=== PATIENT | male | born 1980 | race African-American/Black ===

== ENCOUNTER 2024-01-14 20:22 | Emergency (ER) | payer MEDICAID ==
[~2024-01-14] VITALS: Ht 188 cm; Wt 111.0 kg
[~2024-01-14 20:22] MED LIST: LEVO-65 PO; TAMS-11 PO
[2024-01-14 20:26] VITALS: TEMP 98; O2SAT 97
[2024-01-15] MEDS: METHOCARBAMOL 500MG TABLET PO ONE (00:46)
[2024-01-15] MEDS: HYDROCODONE/ACETAMINOPHEN 5/325MG TABLET PO ONE (00:46)
[2024-01-15] MEDS: KETOROLAC 30MG/ML VIAL IM ONE (00:46)
[2024-01-15] MEDS: LIDOCAINE 5% PATCH TOP SCH (00:48)
[2024-01-15] MEDS ORDERED: LIDO700A15 TP (01:02)
[2024-01-15] MEDS ORDERED: METH-653 MT (01:02)
[2024-01-15] MEDS ORDERED: IBUP-2028 MT (01:02)
[2024-01-15 01:40] VITALS: BP 120/75; PULSE 64; RESP 18; O2SAT 99
== END 2024-01-15 01:41 | disposition home or self-care (01) ==
LOC: ER 20:22
DX: M54.31 Sciatica, right side (principal)
CPT/HCPCS: 99284; 96372; J1885

== ENCOUNTER 2024-02-05 07:20 | Emergency (ER) | payer MEDICAID ==
[~2024-02-05] VITALS: Ht 193 cm; Wt 103.0 kg
[~2024-02-05 07:20] MED LIST changes: +IBUP-2028 MT; +LIDO700A15 TP; +METH-653 MT
[2024-02-05 07:26] VITALS: O2SAT 98
[2024-02-05] MEDS ORDERED: IBUP-2030 PO (08:43)
[2024-02-05] MEDS ORDERED: DOCU-422 PO (08:43)
[2024-02-05 08:44] VITALS: BP 137/61; PULSE 73; RESP 16; TEMP 36.50292; O2SAT 98
[2024-02-05] MEDS: MORPHINE SULFATE 4 MG/ML INJ (FOR IV/IM USE) IV NR (09:27)
[2024-02-05] MEDS: KETOROLAC 30MG/ML VIAL IV NR (09:27)
[2024-02-05] MEDS ORDERED: LACTULOSE 20G/30ML UDC PO SCH (14:00)
== END 2024-02-05 11:08 | disposition home or self-care (01) ==
LOC: ER 07:20
DX: M54.31 Sciatica, right side (principal); Z79.899 Other long term (current) drug therapy
CPT/HCPCS: 72100; 96374; 96375; 99284; J1885; J2270; Z7610

== ENCOUNTER 2024-03-13 11:43 | Emergency (ER) | payer MEDICAID ==
[~2024-03-13] VITALS: Ht 180.3 cm; Wt 101.0 kg
[~2024-03-13 11:43] MED LIST changes: +DOCU-422 PO; +IBUP-2030 PO
[2024-03-13 11:45] VITALS: BP 109/68; PULSE 71; RESP 18; TEMP 98.6; O2SAT 100
[2024-03-13 13:24] LABS: BASOPHILS % 0.4 % (0.0-2.0); EOSINOPHILS % 0.8 % (0.0-5.0); HEMATOCRIT. 39.2 % (42.0-52.0); HEMOGLOBIN. 13.1 g/dL (14.0-18.0); LYMPHOCYTES % 10.8 % (20.0-50.0); MEAN CORPUSCULAR HEMOGLOBIN 32.2 pg (28.0-32.0); MEAN CORPUSCULAR HGB CONC 33.4 g/dL (31.0-37.0); MEAN CORPUSCULAR VOLUME 96.4 fL (80.0-94.0); MEAN PLATELET VOLUME 8.7 fl (7.4-10.4); MONOCYTES % 8.8 % (2.0-8.0); NEUTROPHILS % 79.2 % (40.0-76.0); PLATELET 278 x1000/uL (130-400); RED BLOOD CELL COUNT 4.07 mill/uL (4.7-6.1); RED CELL DISTRIBUTION WIDTH 13.9 % (11.6-14.6); WHITE BLOOD COUNT 15.2 x1000/uL (4.5-11.0)
[2024-03-13 13:37] LABS: CHLORIDE 105 mEq/L (98-107); POTASSIUM 4.3 mEq/L (3.5-5.1); SODIUM 139 mEq/L (136-145)
[2024-03-13 13:38] LABS: CALCIUM 9.3 mg/dL (8.7-10.4); CARBON DIOXIDE 31 mEq/L (21-32)
[2024-03-13 13:43] LABS: GLUCOSE 96 mg/dL (70-105); UREA NITROGEN BLOOD 12 mg/dL (9-23)
[2024-03-13 15:08] LABS: ALANINE AMINOTRANSFERASE 15 IU/L (10-49); ASPARTATE AMINOTRANSFERASE 17 IU/L (<34); BILIRUBIN DIRECT 0.2 mg/dL (<=3.0); BILIRUBIN TOTAL 0.6 mg/dL (0.1-1.0); PROTEIN TOTAL 6.6 g/dL (6.0-8.3)
[2024-03-13 17:33] LABS: CLARITY URINE CLOUDY (CLEAR); COLOR URINE YELLOW (YELLOW); GLUCOSE URINE NEGATIVE (NEGATIVE); KETONES URINE NEGATIVE (NEGATIVE); LEUKOCYTE ESTERASE URINE NEGATIVE (NEGATIVE); NITRITE URINE NEGATIVE (NEGATIVE); OCCULT BLOOD URINE 1+ (NEGATIVE); PROTEIN URINE NEGATIVE (NEGATIVE); SPECIFIC GRAVITY URINE 1.014 (1.005-1.030)
[2024-03-13 18:24] LABS: BACTERIA URINE 2+; RBC URINE 0-2 /hpf (0-2); SQUAMOUS EPITHELIAL CELL URINE FEW /lpf (RARE/1+)
== END 2024-03-13 17:30 | disposition left against medical advice (07) ==
LOC: ER 11:43
DX: R10.9 Unspecified abdominal pain (principal); Z79.899 Other long term (current) drug therapy; Z98.890 Other specified postprocedural states
CPT/HCPCS: 36415; 76705; 80048; 80076; 81003; 85025; 93005; 99284